=== PATIENT | male | born 1950 | race Caucasian/White ===

== ENCOUNTER → 2020-11-12 07:51 | Outpatient (CLI) | payer MEDICARE, MEDICAID, SELFPAY ==
--- NOTE | 2020-11-12 08:01 | CA_ITS ---
APPROVED REPORT EXAM: Comprehensive 2D, Doppler, and color-flow Echocardiogram Promotion Manager: Carly Banda RT(R) Ht: 6 ft 1 in Wt: 318lbs BSA: 2.62 BP: 138/68 mmHg Indications: Obesity, ex smoker, edema, HTN, DM, SOB, MALATHI, CHF, hyperlipidemia, CAD, PAD 2D Dimensions LVOT 2.38 cm (M/F) 1.5-2.5 LVEF (Cope's) 44.80 % LV Volume 237.30 mL LA Volume 39.30 mL LA Volume Index 15.00 mL/m2 (M/F) 16-34 M-Mode Dimensions RVDd 3.30 cm (0.9-2.6) LA Diam 5.16 cm (1.9-4.0) LVDd 4.24 cm (3.5-5.7) Ao Diam 3.72 cm (2.0-3.7) LVDs 2.99 cm (3.5-5.7) IVSd 1.25 cm (0.6-1.1) PWd 1.07 cm (0.6-1.1) EF (Teich) 56.80% FS 29.50% EDV (Teich) 80.40 mL ESV (Teich) 34.70 mL LV Diastology E Decel Time 180.00 (160-240 msec) E/A Ratio 0.92 MED E' 8.90 (< 7 cm/sec) E'/MED E' Ratio 12.80 (>14) LAT E' 9.40 (<10 cm/sec) E/LAT E' Ratio 12.12 (>14) Mitral Valve MV E Max Tayo. 114.00 (40-130 cm/s) MV A Velocity 123.00 (40-130 cm/s) E/A Ratio 0.92 MV Decel. Time 180.00 (160-240 ms) MV PHT 53.00 ms Left Ventricle Left atrium is mildly enlarged, left ventricle is normal size, mild concentric left ventricular hypertrophy, visually estimated ejection fraction 55% with no regional wall motion abnormality, diastolic parameters are inconclusive. Right Ventricle Right atrium and right ventricle mildly enlarged with normal contractility. Aortic Valve Aortic valve is minimally thickened and fibrosed, there is no aortic stenosis or aortic insufficiency. Mitral Valve Mitral valve grossly normal, there is trace mitral regurgitation. Tricuspid Valve Tricuspid grossly normal, there is trace tricuspid regurgitation, tricuspid regurgitation jet velocity is inadequate for calculation of the right ventricular systolic pressure. Pulmonic Valve Pulmonic valve is poorly visualized. Great Vessels Aortic root is normal size. Pericardium No significant pericardial effusion noted. Conclusion 1. Mild biatrial enlargement, normal left ventricular size, mild concentric left ventricular hypertrophy, visually estimated ejection fraction 55% with no regional wall motion abnormality, diastolic parameters are inconclusive and 2. Mildly enlarged right ventricle with normal contractility. 3. Trace mitral and tricuspid regurgitation. 4. No significant pericardial effusion noted. Electronically signed by : Saran Albrecht, 11/13/2020 14:04:11
== END ==
PROVIDERS: PCP Family Medicine; Visit Provider Urology
DX: E66.9 Obesity, unspecified (principal); E78.5 Hyperlipidemia, unspecified; I25.10 Atherosclerotic heart disease of native coronary artery without angina pectoris; I44.0 Atrioventricular block, first degree; I50.30 Unspecified diastolic (congestive) heart failure; I50.9 Heart failure, unspecified; I73.9 Peripheral vascular disease, unspecified; R60.9 Edema, unspecified; I11.0 Hypertensive heart disease with heart failure; Z68.41 Body mass index [BMI] 40.0-44.9, adult
CPT/HCPCS: 93306

== ENCOUNTER → 2021-11-05 10:26 | Outpatient (CLI) | payer MEDICARE, MEDICAID, SELFPAY ==
[2021-11-05 11:07] LABS: Basophils # 0.1 K/mm3 (0-0.2); Basophils % 1.2 % (0.1-2.0); Eosinophils # 0.3 K/mm3 (0.0-0.4); Eosinophils % 3.6 % (0.1-12.0); Hematocrit 40.8 % (42.0-52.0); Hemoglobin 12.7 g/dL (14.1-18.0); Lymphocytes % 28.2 % (10-50); Mean Corpuscular HGB Conc 31.1 g/dL (31.8-35.4); Mean Corpuscular Hemoglobin 27.2 pg (27.0-31.2); Mean Corpuscular Volume 87.6 fl (80-94); Mean Platelet Volume 9.7 fl (7.4-10.4); Monocytes # 0.4 K/mm3 (0.1-1.0); Monocytes % 5.2 % (1.7-9.3); Neutrophils # 4.4 K/mm3 (1.8-7.8); Neutrophils % 61.7 % (37.0-80.0); Platelet Count 163 K/mm3 (142-424); Red Blood Count 4.66 M/mm3 (4.60-6.20); Red Cell Distribution Width 15.8 % (11.5-17.5); White Blood Count 7.1 K/mm3 (4.8-10.8)
[2021-11-05 11:29] LABS: Chloride 105 mmol/L (98-107); Potassium 4.7 mmoL/L (3.5-5.1); Sodium 140 mmol/L (136-145)
[2021-11-05 11:32] LABS: Alanine Aminotransferase 24 U/L (12-78); Albumin Level 4.2 g/dl (3.5-5.0); Alkaline Phosphatase 61 U/L (38-126); Aspartate Amino Transferase 27 U/L (17-59); Bilirubin,Total 0.8 mg/dl (0.2-1.3); Glucose 197 mg/dl (74-100); Magnesium 1.8 mg/dl (1.6-2.3); Total Protein,Serum 6.7 g/dl (6.3-8.2)
[2021-11-05 11:33] LABS: HDL Cholesterol 28 mg/dl (40-60)
[2021-11-05 11:38] LABS: Anion Gap 14.7 mEq/L (5-15); Bilirubin,Unconjugated 0.7 mg/dL (0.0-1.1); Blood Urea Nitrogen 26 mg/dl (9-20); Carbon Dioxide 25 mmol/L (22.0-30.0); Estimated Glomerular Filt Rate 55 ml/min (>60); GFR (African American) 66 ML/MIN (>60); Triglycerides 132 mg/dl (30-150); VLDL Cholesterol 26 mg/dL (0-40)
[2021-11-05 11:39] LABS: Chol/HDL Ratio 3.8 (1-3.5); Cholesterol 107 mg/dl (140-200)
[2021-11-05 12:02] LABS: Free T4 (Free Thyroxine) 1.08 ng/dl (0.78-2.19)
[2021-11-05 12:14] LABS: Thyroid Stimulating Hormone 2.48 uIU/mL (0.465-4.68)
[2021-11-05 12:26] LABS: Bilirubin,Direct 0.2 mg/dl (0.0-0.4); Bilirubin,Indirect 0.7 mg/dL (0.0-0.9)
== END ==
PROVIDERS: PCP Family Medicine; Visit Provider Nurse Practitioner
DX: E11.9 Type 2 diabetes mellitus without complications (principal); E78.5 Hyperlipidemia, unspecified; G47.33 Obstructive sleep apnea (adult) (pediatric); I25.10 Atherosclerotic heart disease of native coronary artery without angina pectoris; I50.30 Unspecified diastolic (congestive) heart failure; I73.9 Peripheral vascular disease, unspecified; N18.30 Chronic kidney disease, stage 3 unspecified; R06.00 Dyspnea, unspecified; I11.0 Hypertensive heart disease with heart failure; Z79.4 Long term (current) use of insulin
CPT/HCPCS: 80048; 80061; 80076; 83735; 84439; 84443; 85025

== ENCOUNTER 2023-10-04 11:56 | Outpatient (CLI) | payer MEDICARE, MEDICAID, SELFPAY ==
[2023-10-04 12:36] LABS: Basophils # 0.1 K/mm3 (0-0.2); Basophils % 0.7 % (0.1-2.0); Eosinophils # 0.1 K/mm3 (0.0-0.4); Eosinophils % 1.6 % (0.1-12.0); Hematocrit 40.8 % (42.0-52.0); Hemoglobin 12.6 g/dL (14.1-18.0); Lymphocytes # 2.4 K/mm3 (0.7-4.5); Lymphocytes % 27.5 % (10-50); Mean Corpuscular Hemoglobin 26.1 pg (27.0-31.2); Mean Corpuscular Volume 84.4 fl (80-94); Mean Platelet Volume 9.2 fl (7.4-10.4); Monocytes # 0.4 K/mm3 (0.1-1.0); Monocytes % 4.8 % (1.7-9.3); Neutrophils # 5.7 K/mm3 (1.8-7.8); Neutrophils % 65.5 % (37.0-80.0); Platelet Count 186 K/mm3 (142-424); Red Blood Count 4.84 M/mm3 (4.60-6.20); Red Cell Distribution Width 17.5 % (11.5-17.5); White Blood Count 8.8 K/mm3 (4.8-10.8)
[2023-10-04 13:08] LABS: Alanine Aminotransferase 17 U/L (12-78); Albumin Level 4.5 g/dl (3.5-5.0); Alkaline Phosphatase 71 U/L (38-126); Aspartate Amino Transferase 20 U/L (17-59); Bilirubin,Indirect 0.9 mg/dL (0.0-0.9); Bilirubin,Total 0.9 mg/dl (0.2-1.3); Bilirubin,Unconjugated 0.9 mg/dL (0.0-1.1); Cholesterol 111 mg/dl (140-200); HDL Cholesterol 28 mg/dl (40-60); Total Protein,Serum 7.2 g/dl (6.3-8.2); Triglycerides 152 mg/dl (30-150); VLDL Cholesterol 30 mg/dL (0-40)
[2023-10-04 13:09] LABS: Anion Gap 17.7 mEq/L (5-15); Blood Urea Nitrogen 44 mg/dl (9-20); Calcium 9.3 mg/dl (8.4-10.2); Carbon Dioxide 27 mmol/L (22.0-30.0); Chloride 102 mmol/L (98-107); Estimated Glomerular Filt Rate 43 ml/min (>60); GFR (African American) 52 ML/MIN (>60); Glucose 178 mg/dl (74-100); Potassium 4.7 mmoL/L (3.5-5.1); Sodium 142 mmol/L (136-145)
[2023-10-04 13:17] LABS: NT Pro Brain Natriuretic Pep. 387 pg/mL (0-125)
[2023-10-04 13:26] LABS: Free T4 (Free Thyroxine) 1.05 ng/dl (0.78-2.19)
[2023-10-04 13:38] LABS: Thyroid Stimulating Hormone 4.31 uIU/mL (0.465-4.68)
== END 2023-10-04 23:59 | disposition home or self-care (01) ==
LOC: LAB 11:57
PROVIDERS: Internal Medicine; Visit Provider Nurse Practitioner Family
DX: K21.9 Gastro-esophageal reflux disease without esophagitis (principal); I50.30 Unspecified diastolic (congestive) heart failure; R06.00 Dyspnea, unspecified; R60.9 Edema, unspecified; R05.9 Cough, unspecified; E66.9 Obesity, unspecified; I73.9 Peripheral vascular disease, unspecified; E11.9 Type 2 diabetes mellitus without complications; Z68.41 Body mass index [BMI] 40.0-44.9, adult; Z79.4 Long term (current) use of insulin; Z87.891 Personal history of nicotine dependence
CPT/HCPCS: 80048; 80061; 80076; 83735; 83880; 84439; 84443; 85025

== ENCOUNTER 2023-10-20 09:37 | Outpatient (CLI) | payer MEDICARE, MEDICAID, SELFPAY ==
--- NOTE | 2023-10-20 09:38 | CA_ITS ---
APPROVED REPORT EXAM: Comprehensive 2D, Doppler, and color-flow Echocardiogram Customer Leader: Lizbeth Sawant CRT Ht: 6 ft 1 in Wt: 300lbs BSA: 2.56 BP: 131/69 mmHg Indications: Congestive Heart Failure, Shortness of Breath, Diabetes, CAD, Hyperlipidemia, Hypertension/HDD 2D Dimensions LA Volume 55.50 mL LA Volume Index 21.20 mL/m2 (M/F) 16-34 M-Mode Dimensions RVDd 3.49 cm (0.9-2.6) LA Diam 4.21 cm (1.9-4.0) LVDd 5.59 cm (3.5-5.7) LVDs 3.71 cm (3.5-5.7) IVSd 1.74 cm (0.6-1.1) PWd 1.30 cm (0.6-1.1) EF (Teich) 61.80% FS 33.60% EDV (Teich) 153.00 mL TAPSE 3.20 (<1.7) ESV (Teich) 58.50 mL LV Diastology E Decel Time 250 (160-240 msec) E/A Ratio 0.60 MED A' 20.40 cm/s LAT A' 19.70 cm/s Aortic Valve AO Peak GR. 5.00 mmHg Mitral Valve MV E Max Tayo. 61.0 (40-130 cm/s) MV A Velocity 102.0 (40-130 cm/s) E/A Ratio 0.60 MV PHT 73.0 ms Pulmonary Valve PV Peak Velocity 91.0 (50-150 cm/s) Tricuspid Valve TR P. Velocity 179.00 cm/s RAP Estimate 10.00 mmHg RVSP 22.80 mmHg Left Ventricle The left ventricle is normal size. The left ventricular systolic function is normal. The left ventricular ejection fraction is within the normal range. There is increased LV wall thickness. Proximal septal thickening is noted. There is normal LV segmental wall motion. Transmitral Doppler flow pattern suggests impaired LV relaxation. LVEF is 55%. Right Ventricle Right ventricle is mild to moderately dilated. The right ventricular systolic function is normal. Atria The left atrium size is normal. The right atrium size is normal. There is no Doppler evidence of interatrial shunt. The aortic valve is mildly thickened. Aortic Valve There is no aortic valvular stenosis. No aortic regurgitation is present. Mitral Valve The mitral valve is normal in structure. No evidence of mitral valve stenosis. Mild mitral regurgitation. Tricuspid Valve The tricuspid valve leaflets are thin and pliable. Trace tricuspid regurgitation. There is insufficient TR jet to estimate RVSP. Pulmonic Valve The pulmonary valve is normal in structure. Mild pulmonic regurgitation. Great Vessels The aortic root is normal in size. The ascending aorta is normal in size. IVC is normal in size and collapses >50% with inspiration. Pericardium There is no pericardial effusion. Other Information Study Quality: Fair Conclusion Normal LV systolic function. Mild to moderate RV dilation with normal RV function. Mild MR, mild PI. Electronically signed by : Breana Alvarado MD 10/23/2023 21:35:29
--- NOTE | 2023-10-20 10:10 | CT_ITS ---
FINAL REPORT CLINICAL HISTORY: nonheal ulcers, PAD COMPARISON: None FINDINGS: CT ABDOMEN, CT PELVIS, CTA ABDOMEN, CTA PELVIS AND CTA LOWER EXTREMITY RUNOFF COMPARISON: None TECHNIQUE: Thin section axial CT with IV contrast supplemented with 3D MIP reconstruction under CT Angiogram protocol FINDINGS: CT ANGIOGRAM ABDOMEN AND PELVIS: Abdominal aorta shows no significant stenosis, aneurysm or dissection. Mild plaque is present in the aorta. Central mesenteric and renal arteries are widely patent. Iliac vessels show no significant stenosis, dissection or aneurysm. CTA RIGHT LOWER EXTREMITY: The femoral and popliteal vessels contain scattered plaque disease in the distal femoral and popliteal arteries, but showed no significant stenosis or occlusion. The distal popliteal artery is obscured by artifact from orthopedic hardware. There is three-vessel runoff of the calf, with moderate approximately 50% stenosis of the tibioperoneal trunk. There are dense calcifications in the anterior tibial artery, that prevented adequate evaluation. CTA LEFT LOWER EXTREMITY: The femoral and popliteal vessels show mild plaque without no significant stenosis or occlusion. There is two-vessel runoff to the calf. There is segmental occlusion of the proximal and mid portions of the anterior tibial artery. Abdomen: Solid abdominal organs are grossly unremarkable. Cholelithiasis is present. No bowel obstruction is seen. There is no free fluid or free air. There are extensive mesenteric varices with a dominant varix draining into the pelvic veins. Pelvis: Pelvic bowel loops are unremarkable. No mass or fluid collection is seen. IMPRESSION: No significant arterial inflow disease of the aorta or iliac vessels. Lower extremity runoff is limited by infrapopliteal disease, more so on the left than on the right, as described above. 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 This study was performed using automated techniques to achieve radiation exposure as low as reasonably achievable Reviewed, Interpreted and Dictated by Shiva Guzman MD Transcribed by Barbara Santacruz Authenticated and [facility]
[2023-10-20] MEDS: IOPAMIDOL-370 (76%);100ML BOTTLE 20 ML IV (10:58)
[2023-10-20] MEDS: IOPAMIDOL-370 (76%);100ML BOTTLE 100 ML IV (10:58)
[2023-10-20] MEDS: 0.9 % SODIUM CHLORIDE 50 ML VIAL IV (10:58)
[2023-10-20] MEDS: SODIUM CHLORIDE 0.9% 10ML SYR (RAD ONLY) 10 ML IV (10:58)
== END 2023-10-20 23:59 | disposition home or self-care (01) ==
LOC: RT 09:38
PROVIDERS: Visit Provider Nurse Practitioner Family
DX: I50.32 Chronic diastolic (congestive) heart failure (principal); I25.10 Atherosclerotic heart disease of native coronary artery without angina pectoris; I73.9 Peripheral vascular disease, unspecified; R06.02 Shortness of breath; R06.00 Dyspnea, unspecified; R60.1 Generalized edema; R05.9 Cough, unspecified; L98.499 Non-pressure chronic ulcer of skin of other sites with unspecified severity; R06.01 Orthopnea; E66.09 Other obesity due to excess calories; Z68.41 Body mass index [BMI] 40.0-44.9, adult; Z87.891 Personal history of nicotine dependence
CPT/HCPCS: 75635; 93306; Q9967

== ENCOUNTER 2024-11-01 12:23 | Outpatient (CLI) | payer MEDICARE, MEDICAID, SELFPAY ==
--- OUTSIDE RECORDS SUMMARY | 2024-11-01 12:26 | XMS_ITS | Clinical Summary ---
Author Organization [facility] Address [address] [place] [address] Phone Care Team Providers Care Food Service Utility Worker Name Role Phone Unavailable Unavailable Conditions or Problems No information available. Medications No information available. Medications Administered No information available. Allergies, Adverse Reactions, Alerts No information available. Results No information available. Plan of Care No information available. Procedures No information available. Vital Signs No information available. Immunizations No information available. Advance Directives No information available.
--- OUTSIDE RECORDS SUMMARY | 2024-11-01 12:27 | XMS_ITS | Clinical Summary ---
Author Organization [facility] Address [address] [place] [id number] Care Team Providers Care Doors Prefitter Name Role Phone Tika Saldaña MD Primary Care Provider Social History Tobacco Use Types Packs/Day Years Used Date Smoking Tobacco: Former Smokeless Tobacco: Never Sex and Gender Information Value Date Recorded Sex Assigned at Not on file Legal Sex Male 8:22 PM EDT Gender Identity Not on file Sexual Orientation Not on file Last Filed Vital Signs Vital Sign Reading Time Taken Comments Blood Pressure 145/89 11/10/2020 10:56 AM EDT Pulse 74 11/10/2020 10:56 AM EDT Temperature 36.8 C (98.3 F) 11/10/2020 10:56 AM EDT Respiratory Rate 17 08/26/2020 11:39 AM EDT Oxygen Saturation 94% 11/10/2020 10:56 AM EDT Inhaled Oxygen Concentration - - Weight 144 kg (317 lb) 11/10/2020 10:56 AM EDT Height 183.1 cm (6' 0.1 ) 11/10/2020 10:56 AM ED T Body Mass Index 42.87 11/10/2020 10:56 AM EDT Plan of Treatment Health Maintenance Due Date Last Done Comments [facility]-Depression Screening 1950 [facility]-Medicare Annual Wellness (AWV) 1950 [facility]-/Child/Adol SDOH Screenings 1950 Diabetes: Dental Exam 1962 [facility]- SDOH Screenings 1970 [facility]-Adult SDOH Screenings 1970 [facility]-DTaP,Tdap,and Td Vaccine s (1 - Tdap) 10/27/1971 [facility]-Pneumococcal Vaccine: 50 + Years (1 of 2 - PCV) 10/27/1971 CT Colonography 1997 Colonoscopy 1997 FIT-DNA 1997 FIT 1997 FOBT 1997 Sigmoidoscopy 1997 [facility]-Colorectal Cancer Screening 1997 [facility]-Zoster Vaccines (1 of 2) 2002 [facility]-RSV Vaccine: 60+ Years o r (1 - Risk 60-74 years 1-dose series) 2012 [facility]-Diabetes: Hemoglobin A1C 05/10/2020, 03/30/2019 [id number] Vaccine ( season) 2023 [facility]-Influenza Vaccine (#1) 12/24/202402/25, 03/11/2022, 04/06/2019 [facility]-Hepatitis C Screening Completed 11/09/2019 HPV Vaccines Aged Out No longer eligi ble based on patient's age to complete this topic [facility]-HIB Vaccines Aged Out No longer e ligible based on patient's age to complete this topic [facility]-Hepatitis A Vaccines Aged Out No longer eligible based on patient's age to complete this topic [facility]-IPV Vaccines Aged Out No longer e ligible based on patient's age to complete this topic [facility]-Rotavirus Vaccines Aged Out No lo nger eligible based on patient's age to complete this topic Procedures Procedure Name Priority Date/Time Associated Diagnosis Comments HEMOGLOBIN A1C Routine 11/11/2019 4:29 AM EDT HEPATITIS C ANTIBODY - ED W/REFLEX TO HCV QUANT PCR Routine 11/09/2019 12:11 PM EDT from Last 3 Months or Most Recently Relevant to Health Maintenance Results * (ABNORMAL) Hemoglobin A1c (11/11/2019 4:29 AM EDT) Hemoglobin A1c 6.5(H) 4.7 - 6.0 % [facility] Comment: Glycohemoglobin Reference Range, 0 years and up: 4.7 to 6.0% . HA1C Interpretive Data: Diagnosis of Diabetes: Diabetic > or = 6.5% Pre-diabetic 5.7 to 6.4% Non-diabetic < or = 5.6% . Glycemic Targets for Type I and Type II Diabetics: Non- Adults <7.0% Adults <6.0% Children and Adolescents <7.5% . Source: [place] [employer]. Standards of medical care in diabetes, 2017. Diabetes Care.2017:40 (suppl 1):S1-S135. . HbA1c assay performed by an ion-exchange chromatography method that is certified traceable to the DCCT. 11/11/2019 4:29 AM EDT 11/11/2019 7:52 AM EDT Judie Friedman APRN, JOE LAB BLOOD ORD ERABLES Final Result [facility] * Fisher Hepatitis C Antibody (11/09/2019 12:11 PM EDT) Pathologist [facility] [place] Fisher Hepatitis C Ab NEGATIVE Reference Range: Negative [facility] 11/09/2019 12:1 1 PM EDT 11/09/2019 12:57 PM EDT Stewart Hall MD LAB BLOOD ORDERABLES Final Res ult [facility]QUEST from Last 3 Months or Most Recently Relevant to Health Maintenance Insurance [facility] MEDICARE Care Teams Doors Prefitter Relationship Specialty Start Date End Date Tika Saldaña MD [address] [place] [address] [facility] - General 09/05/20
[2024-11-01 13:20] LABS: Hematocrit 38.8 % (42.0-52.0); Hemoglobin 11.2 g/dL (14.1-18.0); Immature Granulocytes % 0.3 %; Mean Corpuscular HGB Conc 28.9 g/dL (31.8-35.4); Mean Corpuscular Hemoglobin 24.3 pg (27.0-31.2); Mean Corpuscular Volume 84.2 fl (80-94); Nucleated Red Blood Cells % 0 %; Platelet Count 175 K/mm3 (142-424); Red Blood Count 4.61 M/mm3 (4.60-6.20); Red Cell Distribution Width-SD 55.3 fL; White Blood Count 9.6 K/mm3 (4.8-10.8)
[2024-11-01 14:18] LABS: Alanine Aminotransferase 12 U/L (12-78); Albumin Level 4.1 g/dl (3.5-5.0); Alkaline Phosphatase 68 U/L (38-126); Anion Gap 17.7 mEq/L (5-15); Aspartate Amino Transferase 16 U/L (17-59); Bilirubin,Direct 0.2 mg/dl (0.0-0.4); Bilirubin,Indirect 0.5 mg/dL (0.0-0.9); Bilirubin,Total 0.7 mg/dl (0.2-1.3); Bilirubin,Unconjugated 0.5 mg/dL (0.0-1.1); Blood Urea Nitrogen 35 mg/dl (9-20); Calcium 9.1 mg/dl (8.4-10.2); Carbon Dioxide 29 mmol/L (22.0-30.0); Chloride 100 mmol/L (98-107); Cholesterol 111 mg/dl (140-200); Creatinine,Serum 1.50 mg/dl (0.66-1.25); Estimated Glomerular Filt Rate 46 ml/min (>60); GFR (African American) 56 ML/MIN (>60); Glucose 183 mg/dl (74-100); HDL Cholesterol 26 mg/dl (40-60); Magnesium 1.9 mg/dl (1.6-2.3); Potassium 4.7 mmoL/L (3.5-5.1); Sodium 142 mmol/L (136-145); Total Protein,Serum 6.9 g/dl (6.3-8.2); Triglycerides 109 mg/dl (30-150)
[2024-11-01 14:33] LABS: Free T4 (Free Thyroxine) 1.16 ng/dl (0.78-2.19)
[2024-11-01 14:47] LABS: Thyroid Stimulating Hormone 2.04 uIU/mL (0.465-4.68)
== END 2024-11-01 23:59 | disposition home or self-care (01) ==
LOC: LAB 12:25
PROVIDERS: Visit Provider Physician Assistant
DX: E78.2 Mixed hyperlipidemia (principal); R60.1 Generalized edema; E11.59 Type 2 diabetes mellitus with other circulatory complications; Z79.4 Long term (current) use of insulin; I50.32 Chronic diastolic (congestive) heart failure; I73.9 Peripheral vascular disease, unspecified; I11.0 Hypertensive heart disease with heart failure
CPT/HCPCS: 36415; 80048; 80061; 80076; 83735; 84439; 84443; 85025